=== PATIENT | male | born 1995 | race African-American/Black ===

== ENCOUNTER 2018-12-19 01:42 | Emergency (ER) | payer SELFPAY ==
[~2018-12-19] VITALS: Ht 182.9 cm; Wt 88.0 kg
[2018-12-19] MEDS ORDERED: CEFAZOLIN 1000MG PREMIX 50 ML IV ONE (02:30)
[2018-12-19] MEDS ORDERED: FENTANYL CITRATE/PF 50MCG/ML 2ML VIAL IV ONE (02:30)
[2018-12-19] MEDS ORDERED: TETANUS, DIPHTHERIA, PERTUSSIS VAC/PF 0.5ML (>7YR OLD) IM ONE (02:30)
[2018-12-19 03:01] LABS: BASOPHILS % 0.7 % (0.0-2.0); LYMPHOCYTES % 39.1 % (20.0-50.0); MEAN CORPUSCULAR HEMOGLOBIN 31.4 pg (28.0-32.0); MEAN CORPUSCULAR VOLUME 90.1 fL (80.0-94.0); MEAN PLATELET VOLUME 9.5 fl (7.4-10.4); MONOCYTES % 7.6 % (2.0-8.0); NEUTROPHILS % 50.6 % (40.0-76.0); PLATELET 270 x1000/uL (130-400); RED BLOOD CELL COUNT 4.77 mill/uL (4.7-6.1); RED CELL DISTRIBUTION WIDTH 12.5 % (11.6-14.6)
[2018-12-19 03:04] LABS: CHLORIDE 106 mEq/L (98-107)
[2018-12-19 04:00] LABS: BASOPHILS % 0.8 % (0.0-2.0); EOSINOPHILS % 1.2 % (0.0-5.0); HEMATOCRIT. 40.3 % (42.0-52.0); HEMOGLOBIN. 14.1 g/dL (14.0-18.0); LYMPHOCYTES % 33.6 % (20.0-50.0); MEAN CORPUSCULAR HEMOGLOBIN 31.7 pg (28.0-32.0); MEAN CORPUSCULAR VOLUME 90.4 fL (80.0-94.0); MEAN PLATELET VOLUME 9.3 fl (7.4-10.4); MONOCYTES % 7.9 % (2.0-8.0); NEUTROPHILS % 56.5 % (40.0-76.0); PLATELET 243 x1000/uL (130-400); RED BLOOD CELL COUNT 4.45 mill/uL (4.7-6.1); RED CELL DISTRIBUTION WIDTH 12.3 % (11.6-14.6)
[2018-12-19 04:28] VITALS: BP 121/62
== END 2018-12-19 04:35 | disposition short-term general hospital (02) ==
LOC: ER 02:20
DX: S81.801A Unspecified open wound, right lower leg, initial encounter (principal); W34.09XA Accidental discharge from other specified firearms, initial encounter; Y93.89 Activity, other specified; Y92.89 Other specified places as the place of occurrence of the external cause; Y99.8 Other external cause status
CPT/HCPCS: 36415; 73590; 80048; 83605; 85025; 90471; 90715; 96365; 96375; 99285; A4217; J0690; J3010; Z7610

== ENCOUNTER 2023-03-05 00:13 | Emergency (ER) | payer SELFPAY ==
[~2023-03-05] VITALS: Ht 177.8 cm; Wt 82.0 kg
[2023-03-05 00:18] VITALS: BP 127/71; PULSE 82; RESP 15; TEMP 98.6; O2SAT 98
== END 2023-03-05 02:12 ==
LOC: ER 00:13
DX: M25.532 Pain in left wrist (principal)
CPT/HCPCS: 73110; 99283